=== PATIENT | male | born 1995 | race Caucasian/White ===

== ENCOUNTER 2020-11-05 18:50 | Emergency (ER) | payer BC, SELFPAY ==
--- NOTE | ~2020-11-05 | XR_ITS ---
EXAMINATION: XR ankle RT min 3V EXAM DATE: 11/05/2020 20:24 INDICATION: R Ankle pain/swelling s/p twisting injury. Initial encounter. TECHNIQUE: Right ankle frontal, lateral and oblique projections obtained and reviewed. There is no p rior study for comparison. FINDINGS: The right ankle mortise appears intact. There are no acute fractures or dislocations iden tified. There is no subcutaneous gas. There is soft tissue swelling over the ankle anterolaterally. There may be an ankle joint effusion. There are no radiopaque foreign bodies. IMPRESSION: 1. Right ankle exam without acute osseous findings. 2. Soft tissue swelling. Possible joint effusion. Reviewed, dictated and finalized at location A. COORDINATOR
[2020-11-05 20:06] VITALS: BP 123/86; PULSE 90; RESP 13; TEMP 37.3; O2SAT 96
--- NOTE | 2020-11-05 20:49 | ED_ITS ---
HPI - Extremity Injury (Lower) General Chief Complaint: Extremity Injury, Lower Stated Complaint: 25 YO male w/ right ankle swelling after he rolled ankle while he was out for a jog earlier today. Related Data Home Medications Medication Instructions Recorded Confirmed terbinafine HCl 250 mg PO DAILY 11/05/20 11/05/20 Allergies Allergy/AdvReac Type Severity Reaction Status Date / Time No Known Allergies Allergy Verified 11/05/20 20:19 Review of Systems Cardiovascular: Cardiovascular: Reports no additional cardiovascular complaint s Respiratory: Respiratory: Reports no additional respiratory complaints Musculoskeletal: Musculoskeletal: Reports as per HPI, Reports arthralgias and Reports joint swelling Integumentary/Breasts: Skin/Breast: Reports system reviewed and no additional complaints, except as docu Neurologic: Reports system reviewed and no additional complaints, except as documented Exam Const: General: no acute distress Orientation/consciousness: patient oriented x3 Chest: Chest palpation & inspection: normal inspection of the chest Resp: Effort & Inspection: normal respiratory effort Cardio: Rate: regular rate Rhythm: regular rhythm Extrem: Other: R lateral ankle swelling with mild TTP, from Psych: Mental Status: mental status grossly normal Course Vital Signs Vital signs: Vital Signs Temperature 99.2 F 11/05/20 20:06 Pulse Rate 90 11/05/20 20:06 Respiratory Rate 13 11/05/20 20:06 Blood Pressure 123/86 11/05/20 20:06 Pulse Oximetry 96 11/05/20 20:06 Temperature 99.2 F 11/05/20 20:06 Pulse Rate 90 11/05/20 20:06 Respiratory Rate 13 11/05/20 20:06 Blood Pressure 123/86 11/05/20 20:06 Pulse Oximetry 96 11/05/20 20:06 MDM - Extremity Injury (Lower) Differential Diagnosis Differential diagnosis: Likely ankle sprain and strain and ankle fracture Critical Care Time Critical Care Time Critical Care Time: No Discharge Plan Discharge Clinical Impression: Ankle sprain and strain Patient Disposition: Home, Self-Care Condition: Stable Instructions: Antibiotic Form, Ankle Sprain (ED), Ankle Stirrup Splint (ED) Prescriptions: New naproxen 500 mg tablet 500 mg PO BID PRN (Reason: pain) Qty: 20 RF: 0 No Action terbinafine HCl 250 mg tablet 250 mg PO DAILY RF: 0 Follow-up/Referrals: Jl,Xu Reyes MD [Primary Care Provider] - Time of Disposition: 20:54
[2020-11-05] MEDS: HYDROcodone/acetaminophen (*CRX) 5-325 MG TABLET 1 TAB PO (21:00)
[2020-11-05 21:08] VITALS: RESP 15; O2SAT 100
== END 2020-11-05 21:09 | disposition home or self-care (01) ==
PROVIDERS: Emergency Provider Family Medicine; PCP Family Medicine
DX: S93.401A Sprain of unspecified ligament of right ankle, initial encounter (principal); X50.9XXA Other and unspecified overexertion or strenuous movements or postures, initial encounter; Y93.02 Activity, running
CPT/HCPCS: 29515; 73610; 99283; A9270; L4350

== ENCOUNTER 2020-11-29 16:04 | Outpatient (CLI) | payer BC, SELFPAY ==
--- NOTE | ~2020-11-29 | XR_ITS ---
EXAMINATION: XR ankle RT min 3V EXAM DATE: 11/29/2020 16:22 INDICATION: f/u, right ankle sprain 3 weeks ago.ATTN: lateral malleolus . TECHNIQUE: Right ankle frontal, lateral and oblique projections obtained and reviewed. Comparison is made to prior examination from 11/05/2020. FINDINGS: There is possible acute nondisplaced talar beak fracture. The right ankle mortise appears i ntact. There is no subcutaneous gas. Decrease in amount of the lateral soft tissue swelling. Ther e are no radiopaque foreign bodies. IMPRESSION: 1. Possible nondisplaced talar beak fracture. Consider CT scan. 2. Decrease in soft tissue swelling. Reviewed, dictated and finalized at location B. AL NURSE
== END 2020-11-29 16:05 | disposition home or self-care (01) ==
LOC: CHSIMG 16:07
PROVIDERS: PCP Family Medicine; Visit Provider Family Medicine
DX: S93.401D Sprain of unspecified ligament of right ankle, subsequent encounter (principal)
CPT/HCPCS: 73610

== ENCOUNTER 2021-01-19 16:06 | Outpatient (RCR) | payer BC, SELFPAY ==
--- NOTE | 2021-01-19 16:39 | PTOPEVAL ---
Thank you for referring Sukumar Knapp to [facility].? The patient is scheduled to be seen for therapy? __2__x/week for 8 visits. Please review, sign, date and return this plan of care LEE ANN. I agree with and certify that the following plan of care is medically necessary. Referring Physician Date Admitting Provider: Attending Provider: RUSH RANDLE Referring Provider: *PT Outpatient Evaluation Start: 01/19/21 16:00 Freq: Status: Active Protocol: Document 01/19/21 16:02 CANDY (Rec: 01/19/21 16:39 CANDY [id number]) Therapy Assessment Status Assessment Status Assessment Status Evaluation Evaluation Information Problem Diagnosis right ankle sprain Onset 11/05/20 Subjective Information Pt. reports that he was Query Text:As Reported By Patient/ running on pavement and hit Family uneven ground with the right l .e. He reports that he noticed an immediate pop and pain in the described area of the medial right malleolus. He reports that he had immediate bruising. Xray were performed a negative. He underwent MRI which confirmed a sprain. He states that he has noticed limitation in described DF and PF of the right ankle since the injury. He states that he enjoys running but it has been difficult since injury. He has been doing some stretching on his own with little progress. He states that his goal is to be able to return to running without limited mobility. Prior Level of Function Activity Level (Last 3 Months) Occupation PE Hand Dominance Right Activity of Daily Living Ability Independent Indoor/Home Mobility Independent Community Mobility Independent Stairs Ability Independent Functional Cognition (Planning, Shopping Independent , Taking Medications) Cooking Yes Cleaning Yes Laundry Yes Shopping Yes Driving Yes Pain Assessment Timing of Pain Assessment Timing of Pain Assessment Pre-Treatment Pain Scale Pain Scale Used Numeric (1 - 10) Self Report Pain Assessment
== END 2021-02-16 16:50 | disposition home or self-care (01) ==
LOC: CHSPT 16:06
DX: M25.571 Pain in right ankle and joints of right foot (principal); S93.401A Sprain of unspecified ligament of right ankle, initial encounter
CPT/HCPCS: 97014; 97110; 97140; 97161; G0283

== ENCOUNTER 2023-10-29 16:35 | Outpatient (CLI) | payer BC, SELFPAY ==
--- NOTE | ~2023-10-29 | XR_ITS ---
EXAMINATION: XR ankle RT min 3V DATE: 10/29/2023 17:07 INDICATION: Posterior and lateral right ankle pain TECHNIQUE: Anteroposterior, oblique, mortise, and lateral views of the right ankle were obtained. COMPARISON: None. FINDINGS: Alignment is normal. No fracture. Joint spaces are well maintained. Small Achilles calcaneal spur. N o ankle joint effusion. The soft tissues are unremarkable. IMPRESSION: 1. Small Achilles calcaneal spur. Reviewed, dictated and finalized at location A. RAPHY DEPARTMENT CHAIR
== END 2023-10-29 16:36 | disposition home or self-care (01) ==
PROVIDERS: PCP Family Medicine; Visit Provider Family Medicine
DX: M77.31 Calcaneal spur, right foot (principal); M25.571 Pain in right ankle and joints of right foot
CPT/HCPCS: 73610

== ENCOUNTER 2023-11-05 15:58 | Outpatient (RCR) | payer BC, SELFPAY ==
--- NOTE | 2023-11-05 17:04 | PTOPEVAL1 ---
Assessment and note entered by Tom Najera Evaluation Information Assessment Status Evaluation Diagnosis chronic ankle pain Onset 03/19/23 Subjective Information Pt. reports that he initially injured the foot in 2019 while running. He states that he recovered with therapy, but since then have a flare up on pain in March. He states that he runs twice weekly a distance of 2-3 miles. He states pain in the right foot/ankle can happen with any activity and varies in intensity. He states that pain is mostly noted toward the end of the day. He reports that his pain has not changed his lifestyle and is more of a discomfort. He reports that his goal is to be able to stand at the end of the day without pain. Reported Pain Level Pain Score 1: Self Report Assessment PT Clinical Summary Pt. is a 28 year old male who enters the clinic with chronic right ankle pain. Pt. pain is described at the lateral ankle and into the calf, along the peroneus longus. He presents with impaired gait, pain and decreased flexibility. Continued skilled PT is indicated in order to improve thes areas to allow for improved comfort with standing activities. Plan of Care Interventions Electrical Stimulation,Gait Training,Hot Pack/Cold Pack,Manual Therapy,Neuro Re-education, Therapeutic Activities,Therapeutic Exercise PT Services Indicated Yes Treatment Frequency and 2x/week x 8 visits Duration These treatments will address the objective and functional deficits as defined above. The patient will be advanced safely and appropriately in order for the patient to progress towards his/her prior level of function. Additional exercises will be introduced and as well as a comprehensive home exercise program upon discharge, if needed, ?to ensure carryover of functional gains achieved in the clinic. This treatment plan has been reviewed and agreement upon by the patient.
--- NOTE | 2023-11-05 17:04 | OPREHPOC ---
Outpatient Therapy Plan of Care This is a Multidisciplinary Plan of Care that may contain components documented by all disciplines (PT, OT, and ST.) PT Problem 1 PT Problem #1 Knowledge Deficit PT Goal 1 Goal Independent with a HEP focusing on flexibility Target Visit 2 PT Problem 2 PT Problem #2 Pain PT Goal 1 Goal Pt. will report 0/10 pain with standing activities . PT Problem 3 PT Problem #3 Impaired Gait PT Goal 1 Goal Pt. will be able to run for 1-2 miles without pain increase. Target Visit 8
--- NOTE | 2023-12-03 16:31 | PCPTNOTE ---
pt called and cancelled with no reason giving.
--- NOTE | 2023-12-10 15:56 | PTOPPROGNS ---
Assessment and note entered by Tom Najera Discharge Information Assessment Status Discharge Diagnosis chronic ankle pain Onset 03/19/23 Subjective Information Pt. reports little change in his pain levels. He states that he still has pain at the lateral right knee joint. He reports that pain is minimal and does very little to effect his function. He states that the pain is more annoying and would like to do further testing to determine the cause of the pain. Assessment PT Clinical Summary Pt. presents with little objective limitation with exception of restricted hip IR on the right. Despite little objective limitation, subjective reports of pain persist. At this time recommend pt. follow up with his doctor regarding his remaining pain and discuss posibility of xray and MRI to better determine the cause of discomfort. Plan of Care PT Services Indicated No Treatment Frequency and D/C from PT and follow up with doctor regarding Duration continued pain and if further diagnostic testing is indicated. These treatments will address the objective and functional deficits as defined above. The patient will be advanced safely and appropriately in order for the patient to progress towards his/her prior level of function. Additional exercises will be introduced and as well as a comprehensive home exercise program upon discharge, if needed, ?to ensure carryover of functional gains achieved in the clinic. This treatment plan has been reviewed and agreement upon by the patient.
== END 2023-12-10 18:33 | disposition home or self-care (01) ==
LOC: CHSPT 15:58
PROVIDERS: PCP Family Medicine; Visit Provider Family Medicine
DX: M25.571 Pain in right ankle and joints of right foot (principal)
CPT/HCPCS: 97014; 97110; 97112; 97140; 97150; 97161; G0283

== ENCOUNTER 2024-01-21 17:41 | Outpatient (CLI) | payer BC, SELFPAY ==
--- NOTE | ~2024-01-21 | XR_ITS ---
EXAMINATION: XR knee RT 3V DATE: 01/21/2024 18:02 INDICATION: Right knee pain TECHNIQUE: Three views of the right knee were obtained. COMPARISON: None. FINDINGS: Alignment is normal. No fracture or osteochondral lesion. Joint spaces are normal with no e rosions. No joint effusion/synovitis. Soft tissues are unremarkable. IMPRESSION: 1. No acute osseous abnormality. Reviewed, dictated and finalized at location L. ROOM ATTENDANT
== END 2024-01-21 17:42 | disposition home or self-care (01) ==
LOC: CHSIMG 17:43
PROVIDERS: PCP Family Medicine; Visit Provider Family Medicine
DX: M25.561 Pain in right knee (principal)
CPT/HCPCS: 73562

== ENCOUNTER 2024-02-27 16:12 | Outpatient (CLI) | payer BC, SELFPAY ==
--- NOTE | ~2024-02-27 | MR_ITS ---
EXAMINATION: MR knee RT wo con DATE: 02/27/2024 16:53 INDICATION: Right knee pain. TECHNIQUE: Magnetic resonance imaging (MRI) of the right knee was performed without intravenous contr ast. Sequences included axial PD-weighted FS FSE, coronal PD-weighted FSE and PD-weighted FS FSE, sag ittal PD-weighted FSE, and sagittal T2-weighted FS FSE. COMPARISON: Right knee radiographs 01/21/2024 FINDINGS: Medial compartment: There is a horizontal tear involving body of medial meniscus. There is cartilage surface irregularity of tibial condyle and femoral condyle. Lateral compartment: Lateral meniscus is normal. Lateral compartment cartilage is normal. Patellofemoral compartment: Patellar cartilage is normal. Trochlear cartilage is normal. Ligaments and tendons: The anterior and posterior cruciate ligaments are normal. Medial collateral ligament and lateral terra ateral ligament complex are intact. There is mild patellar tendinopathy. Fluid: There is a small knee joint effusion. There is a 5.7 x 2.8 x 2.0 cm multiloculated synovial cyst in t ibialis anterior muscle. IMPRESSION: 1. Mild chondrosis of medial compartment. 2. Tear of medial meniscus. 3. Small knee joint effusion. 4. 5.7 x 2.8 x 2.0 cm multiloculated synovial cyst in tibialis anterior muscle. Reviewed, dictated and finalized at location A.
== END 2024-02-27 16:13 ==
PROVIDERS: PCP Family Medicine; Visit Provider Nurse Practitioner Family
DX: S83.241D Other tear of medial meniscus, current injury, right knee, subsequent encounter (principal); X58.XXXD Exposure to other specified factors, subsequent encounter; M25.461 Effusion, right knee
CPT/HCPCS: 73721

== ENCOUNTER 2024-04-16 08:05 | Outpatient (RCR) | payer BC, SELFPAY ==
--- NOTE | 2024-04-16 09:20 | PTOPEVAL1 ---
Assessment and note entered by Tom Najera Evaluation Information Diagnosis ITB syndrome, anterior tibial syndrome, right leg Onset 03/06/24 Subjective Information Pt. reports that his right leg pain started at the ankle a couple years ago. He reports pain then began in the right knee. He underwent recent MRI that revealed a meniscus tear. He states that his knee pain is constant. He reports that pain has been worsening over the past several months. He is noticing popping in right knee as of recently. He states that he has also developed right hip pain/tightness. He states that hip pain has likely developed due to compensating for his knee. He states that he enjoys running but has not ran since September due to his developed knee pain. 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 He is currently off for the summer. He states that his goal is to decrease his hip and knee pain. Reported Pain Level Pain Score 2,0: Self Report Assessment PT Clinical Summary Pt. is a 28 year old male who enters the clinic with right hip and right knee pain. He presents with impaired postural awareness, impaired gait, impaired flexibility, imapaired hip strength and pain on this date. Continued skilled PT is indicated in order to improve these areas to allow for pt. to participate in all IADL's and recreational activities without limitation. Plan of Care Interventions Electrical Stimulation,Gait Training,Hot Pack/Cold Pack,Manual Therapy,Neuro Re-education, Therapeutic Activities,Therapeutic Exercise PT Services Indicated Yes Treatment Frequency and 1x/week x 6 visits Duration These treatments will address the objective and functional deficits as defined above. The patient will be advanced safely and appropriately in order for the patient to progress towards his/her prior level of function. Additional exercises will be introduced and as well as a comprehensive home exercise program upon discharge, if needed, ?to ensure carryover of functional gains achieved in the clinic. This treatment plan has been reviewed and agreement upon by the patient.
--- NOTE | 2024-04-16 09:22 | OPREHPOC ---
Outpatient Therapy Plan of Care This is a Multidisciplinary Plan of Care that may contain components documented by all disciplines (PT, OT, and ST.) PT Problem 1 PT Problem #1 Knowledge Deficit PT Goal 1 Goal Independent with a HEP addressing hip strength and flexibility. Target Visit 2 PT Problem 2 PT Problem #2 Impaired Flexibility PT Goal 1 Goal Pt. will present at 25 degrees from full knee extension with the 90/90 test Pt. will demonstrate 45 degrees passive bilateral hip IR Target Visit 6 PT Problem 3 PT Problem #3 Impaired Strength PT Goal 1 Goal Pt. will present with 4+/5 bilateral hip IR strength Target Visit 6 PT Problem 4 PT Problem #4 Impaired Gait PT Goal 1 Goal Pt. will return to running without right l.e. pain for duration of 10-15 minutes Target Visit 6
--- NOTE | 2024-04-23 11:18 | PCPTNOTE ---
I reviewed the License Pending Therapist's documentation and agree with the findings.
--- NOTE | 2024-04-28 08:43 | PCPTNOTE ---
Patient called & cancelled scheduled appointment this date.
--- NOTE | 2024-05-08 12:01 | PCPTNOTE ---
I reviewed the License Pending Therapist's documentation and agree with the findings.
--- NOTE | 2024-05-15 07:57 | PCPTNOTE ---
I reviewed the License Pending Therapist's documentation from 05/14/24 and agree with the findings.
== END 2024-05-21 13:19 | disposition home or self-care (01) ==
LOC: CHSPT 08:05
PROVIDERS: Visit Provider Nurse Practitioner Family
DX: M76.30 Iliotibial band syndrome, unspecified leg (principal); M76.811 Anterior tibial syndrome, right leg
CPT/HCPCS: 97110; 97140; 97150; 97161; 97530